=== PATIENT | female | born 1940 | race Caucasian/White ===

== ENCOUNTER 2018-02-15 17:05 | Emergency (ER) | payer MEDICARE, MEDICAID ==
[~2018-02-15 17:05] MED LIST: ASPI-1 PO; CALC667T5 PO; CINA30TA PO; LOVA20TA2 PO; METO-539 PO; VITA150T PO
[2018-03-12] MEDS ORDERED: QUET25TA PO (18:58)
[2018-03-12] MEDS ORDERED: LOSA25TA96 PO (19:02)
[2018-03-12] MEDS ORDERED: CARV3.12 PO (19:02)
[2018-03-12] MEDS ORDERED: ATOR40TA PO (19:02)
[2018-03-12] MEDS ORDERED: PANT40TA4 PO (20:11)
[2018-03-12] MEDS ORDERED: CLOP75TA35 PO (20:11)
== END 2018-02-15 17:38 | disposition left against medical advice (07) ==
LOC: ER 17:06
DX: T81.89XA Other complications of procedures, not elsewhere classified, initial encounter (principal); Z53.21 Procedure and treatment not carried out due to patient leaving prior to being seen by health care provider; Y92.89 Other specified places as the place of occurrence of the external cause

== ENCOUNTER 2018-03-16 16:26 | Emergency (ER) | payer MEDICARE, MEDICAID ==
[~2018-03-16] VITALS: Ht 149.9 cm; Wt 48.2 kg
[~2018-03-16 16:26] MED LIST changes: -ASPI-1 PO; +ATOR40TA PO; -CALC667T5 PO; +CARV3.12 PO; -CINA30TA PO; +CLOP75TA35 PO; +LOSA25TA96 PO; -LOVA20TA2 PO; -METO-539 PO; +PANT40TA4 PO; +QUET25TA PO
[2018-03-16 19:21] LABS: CLARITY,URINE CLEAR (Clear); COLOR,URINE YELLOW (Yellow); GLUCOSE, URINE NEGATIVE (Neg); KETONES,URINE NEGATIVE (Neg); LEUKOCYTE ESTERASE ,URINE SMALL (Neg); NITRITES, URINE NEGATIVE (Neg); OCCULT BLOOD,URINE NEGATIVE (Neg); PH,URINE 8.5 (4.8-8.0); PROTEIN,URINE 100 mg/dl (Neg); UROBILINOGEN,URINE 0.2 E.U/dL (0.2-1.0)
[2018-03-16] MEDS ORDERED: HYDR-4003 PO (19:22)
[2018-03-16 19:23] LABS: UA COLLECTION TYPE CLN CATCH MIDSTREAM
[2018-03-16 19:30] LABS: BACTERIA,URINE 1+ /HPF (Neg); RBC,URINE 0-2 /HPF (0-2); SQUAMOUS EPITHELIAL CELL,UR MANY /LPF (FEW); WBC CLUMPS,URINE MODERATE /HPF (NEGATIVE)
[2018-03-16 19:50] LABS: ALANINE AMINOTRANSFERASE 9 U/L (12-78); ALBUMIN/GLOBULIN RATIO 0.6 (1.1-1.5); ALKALINE PHOSPHATASE 64 IU/L (46-116); ANION GAP 9 (8-16); ASPARTATE AMINO TRANSFERASE 12 U/L (10-37); BILIRUBIN,TOTAL 0.4 MG/DL (0.1-1.0); BLOOD UREA NITROGEN 31 MG/DL (7-18); BUN/CREATININE RATIO 5.7 (6.6-38.0); CALCIUM 8.9 MG/DL (8.5-10.1); CHLORIDE 104 MMOL/L (99-107); CREATININE 5.48 MG/DL (0.40-0.90); GLUCOSE 104 MG/DL (70-104); POTASSIUM 5.1 MMOL/L (3.5-5.1); SODIUM 141 MMOL/L (135-145); TOTAL PROTEIN 5.6 G/DL (6.4-8.2); eGFR 8 ML/MIN
--- NOTE | 2018-03-16 20:19 | NUR ---
DISCUSSED WITH ALAN GUZMÁN RESULTS OF UA: DO NOT TREAT ASYMPTOMATIC UTI, PA AWARE OF PATIENT'S RECENT HOSPITALIZATION. DAUGHTER INFORMED PRIOR TO DISCHARGE
[2018-03-16 20:21] VITALS: BP 125/63
--- NOTE | 2018-03-17 17:32 | NUR ---
PT WAS CALLED AND NOTIFIED THAT THE PAIN MEDICATION THAT DR DIETRICH ORDERED FOR HER COULD NOT BE FAXED OR PHONED INTO THE PHARMACY. PT WAS ADVISED THAT SHE WOULD HAVE TO EITHER F/U WITH HER PMD TOMORROW OR RETURN TO THE ER TO BE SEEN AND GIVEN A PRINTED RX TO TAKE TO THE PHARMACH. PT STATED UNDERSTANDING.
== END 2018-03-16 20:30 | disposition home or self-care (01) ==
LOC: ER 16:26
DX: S70.02XA Contusion of left hip, initial encounter (principal); S20.212A Contusion of left front wall of thorax, initial encounter; E11.9 Type 2 diabetes mellitus without complications; F03.90 Unspecified dementia, unspecified severity, without behavioral disturbance, psychotic disturbance, mood disturbance, and anxiety; Z98.890 Other specified postprocedural states; Z79.82 Long term (current) use of aspirin; Z79.899 Other long term (current) drug therapy; W19.XXXA Unspecified fall, initial encounter; Y93.89 Activity, other specified; Y92.89 Other specified places as the place of occurrence of the external cause; Y99.9 Unspecified external cause status
CPT/HCPCS: 36415; 71045; 73502; 80053; 81001; 99284

== ENCOUNTER 2019-01-25 15:00 | Emergency (ER) | payer MEDICARE, MEDICAID ==
[~2019-01-25] VITALS: Ht 160 cm; Wt 63.6 kg
[~2019-01-25 15:00] MED LIST changes: +HYDR-4003 PO
[2019-01-25 15:41] VITALS: BP 116/62
[2019-01-25] MEDS ORDERED: traMADol 50MG tablet PO ONE (15:50)
[2019-01-25] MEDS ORDERED: TRAM50TA2 PO (16:00)
== END 2019-01-25 17:08 | disposition home or self-care (01) ==
LOC: ER 15:01
DX: M25.562 Pain in left knee (principal); N64.52 Nipple discharge; F03.90 Unspecified dementia, unspecified severity, without behavioral disturbance, psychotic disturbance, mood disturbance, and anxiety; E11.9 Type 2 diabetes mellitus without complications; Z98.890 Other specified postprocedural states; Z79.899 Other long term (current) drug therapy
CPT/HCPCS: 73560; 99283